=== PATIENT | male | born 1965 | race Caucasian/White ===

== ENCOUNTER 2016-11-07 10:33 | Emergency (ER) | payer SELFPAY ==
[~2016-11-07] VITALS: Ht 185.4 cm; Wt 90.0 kg
[2016-11-07 10:34] VITALS: BP 162/116; PULSE 114; RESP 20; TEMP 98.3; O2SAT 96
[2016-11-07] MEDS ORDERED: IBUP200C PO (10:52)
[2016-11-07] MEDS ORDERED: MORPHINE SULFATE 4 MG/ML INJ IV PUSH ONE (11:15)
[2016-11-07] MEDS ORDERED: cloNIDine HCL 0.1 MG TAB PO ONE (11:15)
[2016-11-07] MEDS ORDERED: ONDANSETRON HCL 4 MG/2 ML VIAL IV ONE (11:15)
--- NOTE | 2016-11-07 11:24 | PD ---
HPI Chief Complaint: Flank/Kidney Pain Time Seen by Provider: 10:59 Travel History International Travel<30 days: No Contact w/Intl Traveler<30days: No Traveled to known affect area: No History of Present Illness HPI This patient complains of right flank pain. He's had it every day for 2-1/2 years since his right kidney removal. But worse in the last couple of days. When he coughs or sneezes aggravates it. No acute injury. He really has no insight into the reasons behind his kidney removal other than some kind of tumor he thinks was benign but he really doesn't know. He never had chemotherapy or radiation. He doesn't follow-up with doctors. Symptoms severity is moderate. No alleviating factors. PFSH Past Medical History Medical History: Denies Significant Hx Medical other: Yes (RIGHT KIDNEY REMOVED FOR B9 TUMOR) Past Surgical History Other Surgery: Yes (RIGHT KIDNEY REMOVED, SPINAL FUSION, HERNIA REPAIR) Social History Alcohol Use: Yes (DAILY- 6 BEERS) Tobacco Use: Yes (1PPD) Substance Use: Yes (MARIJUANA) Allergies-Medications (Allergen,Severity, Reaction): Coded Allergies: Contrast Media (Verified Allergy, Severe, 11/07/16) hives swelling Reported Meds & Prescriptions Reported Meds & Active Scripts Active Reported Ibuprofen 200 Mg Cap 200 Mg PO DAILY Review of Systems General / Constitutional: No: Fever Eyes: No: Visual changes HENT: No: Headaches Cardiovascular: No: Chest Pain or Discomfort Respiratory: No: Shortness of Breath Gastrointestinal: No: Abdominal Pain Genitourinary: No: Dysuria Musculoskeletal: Positive: Pain Skin: No Rash Neurologic: No: Weakness Psychiatric: No: Depression Endocrine: No: Polydipsia Hematologic/Lymphatic: No: Easy Bruising Physical Exam Narrative GENERAL: Well-nourished, well-developed patient with right sided back pain . SKIN: Warm and dry. HEAD: Atraumatic. Normocephalic. EYES: Pupils equal and round. No scleral icterus. No injection or drainage. ENT: No nasal bleeding or discharge. Mucous membranes pink and moist. NECK: Trachea midline. No JVD. CARDIOVASCULAR: Regular rate and rhythm. No murmur appreciated. RESPIRATORY: No accessory muscle use. Clear to auscultation. Breath sounds equal bilaterally. GASTROINTESTINAL: Abdomen soft, non-tender, nondistended. Hepatic and splenic margins not palpable. MUSCULOSKELETAL: No obvious deformities. No clubbing. No cyanosis. No edema. NEUROLOGICAL: Awake and alert. No obvious cranial nerve deficits. Motor grossly within normal limits. Normal speech. PSYCHIATRIC: Appropriate mood and affect; insight and judgment normal. Data Data Last Documented VS Vital Signs Date Time Temp Pulse Resp B/P Pulse Ox O2 Delivery O2 Flow Rate FiO2 11/07/16 12:00 98 16 153/98 96 11/07/16 11:30 Room Air 11/07/16 10:34 98.3 Orders Iv Access Insert/Monitor (11/07/16 11:10) Complete Blood Count With Diff (11/07/16 11:10) Basic Metabolic Panel (Bmp) (11/07/16 11:10) Chest, Single Ap (11/07/16 ) Ct Abd/Pel W/O Iv Contrast (11/07/16 ) Ondansetron Inj (Zofran Inj) (11/07/16 11:15) Morphine Inj (Morphine Inj) (11/07/16 11:15) Clonidine (Catapres) (11/07/16 11:15) Labs Laboratory Tests Test 11/07/16 11:20 White Blood Count 10.1 TH/MM3 Red Blood Count 5.22 MIL/MM3 Hemoglobin 17.0 GM/DL Hematocrit 49.3 % Mean Corpuscular Volume 94.4 FL Mean Corpuscular Hemoglobin 32.6 PG Mean Corpuscular Hemoglobin 34.5 % Concent Red Cell Distribution Width 12.7 % Platelet Count 292 TH/MM3 Mean Platelet Volume 8.8 FL Neutrophils (%) (Auto) 78.8 % Lymphocytes (%) (Auto) 12.8 % Monocytes (%) (Auto) 5.2 % Eosinophils (%) (Auto) 2.8 % Basophils (%) (Auto) 0.4 % Neutrophils # (Auto) 7.9 TH/MM3 Lymphocytes # (Auto) 1.3 TH/MM3 Monocytes # (Auto) 0.5 TH/MM3 Eosinophils # (Auto) 0.3 TH/MM3 Basophils # (Auto) 0.0 TH/MM3 CBC Comment DIFF FINAL Differential Comment Sodium Level 137 MEQ/L Potassium Level 3.9 MEQ/L Chloride Level 105 MEQ/L Carbon Dioxide Level 24.6 MEQ/L Anion Gap 7 MEQ/L Blood Urea Nitrogen 11 MG/DL Creatinine 1.21 MG/DL Estimat Glomerular Filtration 64 ML/MIN Rate Random Glucose 148 MG/DL Calcium Level 9.2 MG/DL MDM Medical Decision Making Medical Screen Exam Complete: Yes Emergency Medical Condition: Yes Medical Record Reviewed: Yes Differential Diagnosis Sciatica, lumbar strain, chronic pain syndrome, metastatic disease Narrative Course I have reviewed the patient's electronic medical record. Patient is never been here before. His surgery was on the [place] [facility] Patient has accelerated hypertension and exacerbation of chronic right sided back pain. IV placed I gave him injection of morphine and Zofran for symptom relief Gave him a dose of clonidine Will reassess blood pressure, it is now 153/98 Reviewed his chest x-ray which is negative CBC normal Metabolic profile is normal CT of abdomen and pelvis shows absence of right kidney but no other abnormality Extensive workup was done but nothing to explain his pain. He declines pain medication. I recommended he start with primary care follow-up Diagnosis Primary Impression: Chronic right-sided low back pain without sciatica Additional Impression: Accelerated hypertension Additional Instructions: The patient was advised to follow up with their physician and return if they worsen. Check and record blood pressure daily Med/Other Pt SpecificInfo: Other Disposition: 01 DISCHARGE HOME Condition: Stable Jayden Melendez MD Nov 07, 2016 11:24
[2016-11-07 11:30] VITALS: BP 167/103; PULSE 87; RESP 18; O2SAT 95
[2016-11-07 11:30] LABS: AUTOMATED NEUTROPHIL # 7.9 TH/MM3 (1.8-7.7); BASOPHIL % 0.4 % (0.0-2.0); EOSINOPHIL # 0.3 TH/MM3 (0-0.4); EOSINOPHIL % 2.8 % (0.0-4.0); HEMATOCRIT 49.3 % (39.0-51.0); HEMO FLAGS DIFF FINAL; LYMPH % 12.8 % (9.0-44.0); LYMPHOCYTE # 1.3 TH/MM3 (1.0-4.8); MEAN CELL VOLUME 94.4 FL (80.0-100.0); MEAN CORPUSCULAR HEMOGLOBIN 32.6 PG (27.0-34.0); MEAN CORPUSCULAR HGB CONC 34.5 % (32.0-36.0); MONO % 5.2 % (0.0-8.0); NEUT % 78.8 % (16.0-70.0); PLATELET COUNT 292 TH/MM3 (150-450); RED BLOOD COUNT 5.22 MIL/MM3 (4.50-5.90); RED CELL DISTRIBUTION WIDTH 12.7 % (11.6-17.2); WHITE BLOOD COUNT 10.1 TH/MM3 (4.0-11.0)
[2016-11-07 11:45] LABS: BICARBONATE 24.6 MEQ/L (21.0-32.0); POTASSIUM 3.9 MEQ/L (3.5-5.1)
--- NOTE | 2016-11-07 11:46 | RADRPT ---
EXAM DATE/TIME: 11/07/2016 11:28 [facility] COMPARISON: No previous studies available for comparison. INDICATIONS : Right sided flank pain. ORAL CONTRAST: No oral contrast ingested. RADIATION DOSE: 10.96 CTDIvol (mGy) MEDICAL HISTORY : None SURGICAL HISTORY : Fusion, lumbar. Inguinal hernia repair.Right kidney removal ENCOUNTER: Initial ACUITY: 1 day PAIN SCALE: 5/10 LOCATION: Right flank TECHNIQUE: Volumetric scanning of the abdomen and pelvis was performed. Using automated exposure control and ad justment of the mA and/or kV according to patient size, radiation dose was kept as low as reasonably achievable to obtain optimal diagnostic quality images. The lack of IV contrast limits the diagnosis for certain organ pathology. FINDINGS: LOWER LUNGS: The visualized lower lungs are clear. LIVER: Homogeneous density without lesion. There is no dilation of the biliary tree. No calcified gallston es. SPLEEN: Normal size without lesion. PANCREAS: Within normal limits. KIDNEYS: The right kidney has been surgically removed. The left kidney is within normal limits. There is no hy dronephrosis. No calcified renal stones. The ureters not dilated. ADRENAL GLANDS: Within normal limits. VASCULAR: There is no aortic aneurysm. BOWEL/MESENTERY: The stomach, small bowel, and colon demonstrate no acute abnormality. There is no free intraperitone al air or fluid. No focal inflammatory changes. ABDOMINAL WALL: Within normal limits. RETROPERITONEUM: There is no lymphadenopathy. BLADDER: No wall thickening or mass. REPRODUCTIVE: Within normal limits. INGUINAL: There is no lymphadenopathy or hernia. MUSCULOSKELETAL: Status post lumbar spinal surgery with fusion involving the lumbar spine. Mild primary bony degenerat jeremiah changes. CONCLUSION: 1. No evidence of calcified left renal stones or hydronephrosis. 2. Unremarkable CT abdomen and pelvis. Chele Harvey MD on November 07, 2016 at 11:41 Board Certified Radiologist. This report was verified electronically.
--- NOTE | 2016-11-07 11:52 | RADRPT ---
EXAM DATE/TIME: 11/07/2016 11:43 [facility] COMPARISON: None. INDICATIONS : Right posterior back pain for weeks. MEDICAL HISTORY : None. SURGICAL HISTORY : Right Kidney, Spinal Fusion, Spinal Stem Implant ENCOUNTER: Initial ACUITY: 1 day PAIN SCORE: 4/10 LOCATION: Bilateral chest FINDINGS: A single view of the chest demonstrates the lungs to be symmetrically aerated without evidence of mas s, infiltrate or effusion. The cardiomediastinal contours are unremarkable. Osseous structures are intact. CONCLUSION: No acute disease. Jorge Alberto George Jr., MD Board Certified Radiologist. This report was verified electronically.
[2016-11-07 12:00] VITALS: BP 153/98; PULSE 98; RESP 16; O2SAT 96
== END 2016-11-07 12:25 | disposition home or self-care (01) ==
LOC: NEPE 10:33
DX: M54.5 Low back pain (principal); R03.0 Elevated blood-pressure reading, without diagnosis of hypertension; F17.210 Nicotine dependence, cigarettes, uncomplicated
CPT/HCPCS: 71010; 74176; 80048; 85025; 96374; 96375; 99284; J2270; J2405